=== PATIENT | female | born 1970 | race Caucasian/White ===

== ENCOUNTER 2021-12-23 16:33 | Emergency (ER) | payer BC, OTHER ==
[2021-12-23 18:09] LABS: Hemoglobin 13.7 g/dL (12.0-15.5); Mean Corpuscular HGB CONC 35.7 g/dL (32.0-36.0); Mean Corpuscular Hemoglobin 40.9 pg (27.0-33.0); Mean Corpuscular Volume 114.6 fl (81.6-98.3); Mean Platelet Volume 10.4 fl (7.4-10.4); Platelet Count 102 10x3/uL (150-450); RBC Distribution Width 13.7 % (11.5-14.5); Red Blood Cell (RBC) Count 3.35 10x6/uL (3.90-5.03); White Blood Cell (WBC) Count 3.7 10x3/uL (3.5-10.5)
[2021-12-23 18:10] LABS: MDiff Complete? YES
[2021-12-23 18:21] LABS: ALT (SGPT) 27 U/L (8-55); AST (SGOT) 30 U/L (5-34); Albumin 4.4 g/dL (3.5-5.0); Alkaline Phosphatase 60 U/L (40-110); Anion Gap 17 mmol/L (10-20); BUN (Urea Nitrogen) 8 mg/dL (7.0-18.7); Bilirubin, Total 0.4 mg/dL (0.2-1.2); Calc. Creatinine Clearance 0 mL/min (70-130); Calcium 9.3 mg/dL (7.8-10.44); Carbon Dioxide 22 mmol/L (22-29); Chloride 102 mmol/L (98-107); Globulin 2.9 g/dL (2.4-3.5); Glucose 79 mg/dL (70-105); Lipase 68 U/L (8-78); Potassium 4.4 mmol/L (3.5-5.1); Protein, Total 7.3 g/dL (6.0-8.3); Sodium 137 mmol/L (136-145)
[2021-12-23 18:42] LABS: Lymphocytes 41 % (21-51); Monocytes 6 % (0-10); Neutrophil 53 % (42-75)
[2021-12-23 18:43] LABS: Macrocytosis SLIGHT = 6-15 cells (100X) (0-5/hpf); Platelet Morphology Comment Appears Decreased
[2021-12-23 18:47] LABS: Bilirubin Neg (Negative); Blood, Urine Negative (Negative); Clarity Clear (Clear); Glucose, Urine (Dipstick) Normal (Negative); Ketone, Urine Negative (Negative); Leukocyte Negative (Negative); Nitrite Negative (Negative); Protein, Urine (Dipstick) Negative (Neg-Trace); Urobilinogen Normal mg/dL (Less than 2); pH, Urine 6.5 (5.0-9.0)
[2021-12-23] MEDS ORDERED: Morphine 4 MG/ML VIAL ONE (19:24)
[2021-12-23] MEDS ORDERED: Ondansetron PF 4 MG/2 ML Vial ONE (19:25)
[2021-12-23] MEDS ORDERED: diphenhydrAMINE 50 MG/ML VIAL ONE (19:25)
[2021-12-23] MEDS ORDERED: Lidocaine Viscous Sol 2% 15 ml UD Cup ONE (19:44)
[2021-12-23] MEDS ORDERED: Mag-Al Plus 1200 MG/1200 MG/120 MG/30 ML UDCUP ONE (19:44)
[2021-12-23] MEDS ORDERED: Pantoprazole 40 MG VIAL ONE (19:45)
== END 2021-12-23 19:56 | disposition home or self-care (01) ==
LOC: CSHERS 16:33
DX: K29.00 Acute gastritis without bleeding (principal); F17.210 Nicotine dependence, cigarettes, uncomplicated
CPT/HCPCS: 71275; 74174; 80053; 81003; 83690; 84484; 85025; 93005; 96374; 96375; C9113; J1200; J2270; J2405

== ENCOUNTER 2022-05-03 14:05 | Outpatient (CLI) | payer BC | END 2022-05-03 14:06 | disposition home or self-care (01) | LOC: CSHLAB 14:05 | PROVIDERS: ATTEND Surgery | DX: Z01.818 Encounter for other preprocedural examination (principal); Z20.822 Contact with and (suspected) exposure to COVID-19; K43.0 Incisional hernia with obstruction, without gangrene | CPT/HCPCS: 87811; 93005; 93010 ==

== ENCOUNTER 2022-05-06 07:09 | Day surgery (SDC) | payer BC ==
[2022-05-04 14:27] VITALS: BMI 26.4
[2022-05-06] MEDS ORDERED: Bupivacaine PF 0.5% 30 ML VIAL ONE (07:52)
[2022-05-06] MEDS ORDERED: EPINEPHrine 1 MG/ML AMP ONE (07:52)
[2022-05-06] MEDS ORDERED: CEFAZOLIN 2 GM VIAL ONE (08:12)
[2022-05-06] MEDS ORDERED: PROPOFOL 20 ML ONE (08:14)
[2022-05-06] MEDS ORDERED: Fentanyl 250 MCG/5 ML VIAL ONE (08:14)
[2022-05-06] MEDS ORDERED: Ondansetron PF 4 MG/2 ML Vial ONE (08:44)
[2022-05-06] MEDS ORDERED: Dexamethasone 4 mg/ml Vial ONE (08:44)
[2022-05-06] MEDS ORDERED: Midazolam HCl 2 mg/2 ml Vial ONE (08:47)
[2022-05-06] MEDS ORDERED: SUGAMMADEX SODIUM 200 MG/2 ML VIAL ONE (08:50)
[2022-05-06] MEDS ORDERED: Phenylephrine 40 MG/NS 250 ML 250 ML ONE (08:50)
[2022-05-06] MEDS ORDERED: Ketorolac Tromethamine 30 MG/ML VIAL ONE (09:07)
[2022-05-06] MEDS ORDERED: HYDROcodone/Acetaminophen 5/325 mg Tablet PO PRN (09:56)
[2022-05-06] MEDS ORDERED: Acetaminophen 325 MG TAB PO PRN (09:56)
[2022-05-06] MEDS ORDERED: HYDROmorphone 0.5 MG/0.5 ML SYRINGE ONE ×2 (10:08→10:14)
== END 2022-05-06 11:13 | disposition home or self-care (01) ==
LOC: CSHSDC 07:09
PROVIDERS: ATTEND Surgery
PROC: 0WQF0ZZ Repair Abdominal Wall, Open Approach (ICD-10-PCS; principal; 2022-05-06)
DX: K43.0 Incisional hernia with obstruction, without gangrene (principal); I10 Essential (primary) hypertension; F17.210 Nicotine dependence, cigarettes, uncomplicated; Z20.822 Contact with and (suspected) exposure to COVID-19; Z79.899 Other long term (current) drug therapy; Z88.8 Allergy status to other drugs, medicaments and biological substances; Z88.5 Allergy status to narcotic agent; Z88.2 Allergy status to sulfonamides
CPT/HCPCS: J0171; J0690; J1100; J1170; J1885; J2250; J2405; J2704; J3010; S0020

== ENCOUNTER 2022-12-13 13:50 | Emergency (ER) | payer OTHER ==
[2022-12-13] MEDS ORDERED: Ketorolac Tromethamine 30 MG/ML VIAL ONE (14:57)
== END 2022-12-13 15:11 | disposition home or self-care (01) ==
LOC: CSHERS 13:50
DX: S22.32XA Fracture of one rib, left side, initial encounter for closed fracture (principal); F17.210 Nicotine dependence, cigarettes, uncomplicated; W17.89XA Other fall from one level to another, initial encounter
CPT/HCPCS: 93005; 96372; J1885